=== PATIENT | male | born 1950 | race Caucasian/White ===

== ENCOUNTER 2017-05-18 22:10 | Inpatient (IN) | payer MEDICARE ==
[~2017-05-18] VITALS: Ht 170.2 cm; Wt 58.1 kg
--- NOTE | 2017-05-18 23:05 | NUR ---
MEDICALLY CLEARED BY DR EPPS
[2017-05-18] MEDS ORDERED: FAMO20TA8 PO (23:22)
[2017-05-18] MEDS ORDERED: MULT1TAB11 PO (23:22)
[2017-05-18] MEDS ORDERED: LACT1CAP61 PO (23:22)
[2017-05-18] MEDS ORDERED: RISP0.2515 PO (23:22)
[2017-05-18] MEDS ORDERED: ONDA4TAB8 PO (23:22)
[2017-05-18] MEDS ORDERED: MAG-55 PO (23:22)
[2017-05-18] MEDS ORDERED: SENN8.6T60 PO (23:22)
[2017-05-18] MEDS ORDERED: VALS160T2 PO (23:22)
[2017-05-18] MEDS ORDERED: ACET325T53 PO (23:22)
[2017-05-18] MEDS ORDERED: ENOX40DI SQ (23:22)
[2017-05-18] MEDS ORDERED: THIA100T13 PO (23:22)
[2017-05-18] MEDS ORDERED: BISA10SU8 RC (23:22)
[2017-05-18] MEDS ORDERED: LORA0.5T PO (23:22)
[2017-05-18] MEDS ORDERED: BISA5TAB10 PO (23:22)
[2017-05-18] MEDS ORDERED: DOCU100C36 PO (23:22)
[2017-05-18] MEDS ORDERED: POLY17PO3 PO (23:22)
[2017-05-18] MEDS ORDERED: MEMA10TA PO (23:22)
[2017-05-18] MEDS ORDERED: CALC-513 PO (23:22)
[2017-05-18] MEDS ORDERED: DONE5TAB34 PO (23:22)
[2017-05-18] MEDS ORDERED: DIPH25CA83 PO (23:22)
[2017-05-18] MEDS ORDERED: TEMA15CA PO (23:22)
[2017-05-18] MEDS ORDERED: OXYC-128 PO (23:22)
[2017-05-18] MEDS ORDERED: METO25TA6 PO (23:22)
[2017-05-18] MEDS ORDERED: FOLI1TAB16 PO (23:22)
--- NOTE | 2017-05-18 23:41 | NUR ---
TRANSFERED TO [facility]
[2017-05-19] MEDS ORDERED: MAGNESIUM HYDROXIDE 30 ML LIQUID UDC PO PRN (00:30)
[2017-05-19] MEDS ORDERED: MAG HYDROX/AL HYDROX/SIMETH 30 ML LIQUID UDC PO PRN (00:30)
--- NOTE | 2017-05-19 00:45 | NUR ---
Admitted 67 years old male from [facility] to [facility] on a 5150 hold for GD. Patient presented at [facility] with AMS, confused disoriented. pt was "recently kicked out of his group home facility for agitation." Pt has no support system and stated "all my family is ." Patient has no safe plan for self care at this time. Hold started on 05/18/17 at 1700 and will end on 05/21/17 at 1700. Pt was initially agitated upon arrival to the unit; however, he was cooperative with admission process. Skin assessment, a bruise was noted in right hand posterior aspect, a small scab noted in left forearm lateral aspect. a small bruise noted in upper left arm lateral aspect. Redness in groin area. He also has two small surgical incision in right hip lateral aspect. Pictures were taken. Medication were reconciled with Dr. Mcknight. He will also be under the care of Dr. Hayes (Psych MD). Patient uses a walker to assist with ambulation. PT eval was ordered. Pt requested Tylenol 650mg PO PRN for rt hip pain. will continue to monitor.
[2017-05-19] MEDS ORDERED: SENNOSIDES 1 TABLET PO PRN (01:00)
[2017-05-19] MEDS ORDERED: CALCIUM CARBONATE 500 MG TABLET PO PRN (01:00)
[2017-05-19] MEDS ORDERED: ONDANSETRON ODT 4 MG TAB.RAPDIS SL PRN (01:00)
[2017-05-19] MEDS ORDERED: ACETAMINOPHEN 325 MG TABLET PO PRN (01:00)
[2017-05-19] MEDS ORDERED: BISACODYL 5 MG TABLET.DR PO PRN (01:00)
[2017-05-19] MEDS ORDERED: BISACODYL 10 MG SUPP.RECT RC PRN (01:00)
[2017-05-19] MEDS: ACETAMINOPHEN 325 MG TABLET PO PRN ×2 (01:12→18:09)
[2017-05-19] MEDS ORDERED: ACETAMINOPHEN 325 MG TABLET ONE (01:25)
[2017-05-19 05:10] VITALS: BP 145/84
[2017-05-19 05:46] VITALS: BP 143/81
[2017-05-19 07:30] VITALS: BP 133/83
[2017-05-19] MEDS ORDERED: CALCIUM CARBONATE 500 MG TAB.CHEW PO PRN (07:30)
[2017-05-19] MEDS: DOCUSATE SODIUM 100 MG CAPSULE PO SCH (08:52)
[2017-05-19] MEDS: THIAMINE HCL 100 MG TABLET PO SCH (08:52)
[2017-05-19] MEDS: FAMOTIDINE 20 MG TABLET PO SCH ×2 (08:58→20:37)
[2017-05-19] MEDS: FOLIC ACID 1 MG TABLET PO SCH (08:58)
[2017-05-19] MEDS: METOPROLOL TARTRATE 25 MG TABLET PO SCH ×2 (08:58→20:38)
[2017-05-19] MEDS: VALSARTAN 160 MG TABLET PO SCH ×2 (08:59→20:37)
[2017-05-19] MEDS: MIRALAX 17 GM POWD.PACK PO SCH (09:00)
[2017-05-19] MEDS: ENOXAPARIN SODIUM 40 MG/0.4 ML DISP.SYRIN SQ SCH (09:00)
[2017-05-19] MEDS: Z GUARD REMEDY PASTE 57 GM TUBE TOP SCH ×2 (09:15→21:18)
[2017-05-19 15:00] VITALS: BP 142/97
[2017-05-19 20:20] VITALS: BP 145/99
[2017-05-19] MEDS: RIVASTIGMINE TARTRATE 1.5 MG CAPSULE PO SCH (20:36)
[2017-05-19] MEDS: risperiDONE 0.5 MG TABLET PO SCH (20:37)
[2017-05-20 07:30] VITALS: BP 124/88
--- NOTE | 2017-05-20 07:30 | NUR ---
pt received in bed awake.no c/o pain noted.pt is axox3,no combative behavior noted,no new needs noted
[2017-05-20] MEDS: Z GUARD REMEDY PASTE 57 GM TUBE TOP SCH ×2 (10:12→20:05)
[2017-05-20] MEDS: THIAMINE HCL 100 MG TABLET PO SCH (10:13)
[2017-05-20] MEDS: FAMOTIDINE 20 MG TABLET PO SCH ×2 (10:13→20:03)
[2017-05-20] MEDS: MIRALAX 17 GM POWD.PACK PO SCH (10:13)
[2017-05-20] MEDS: risperiDONE 0.5 MG TABLET PO SCH ×2 (10:13→20:03)
[2017-05-20] MEDS: VALSARTAN 160 MG TABLET PO SCH ×2 (10:14→20:03)
[2017-05-20] MEDS: DOCUSATE SODIUM 100 MG CAPSULE PO SCH (10:14)
[2017-05-20] MEDS: METOPROLOL TARTRATE 25 MG TABLET PO SCH ×2 (10:15→20:03)
[2017-05-20] MEDS: FOLIC ACID 1 MG TABLET PO SCH (10:15)
[2017-05-20] MEDS: RIVASTIGMINE TARTRATE 1.5 MG CAPSULE PO SCH ×2 (10:15→20:03)
[2017-05-20] MEDS: ENOXAPARIN SODIUM 40 MG/0.4 ML DISP.SYRIN SQ SCH (10:16)
--- NOTE | 2017-05-20 11:00 | NUR ---
pt is walking in the hallway with walker
[2017-05-20 15:06] VITALS: BP 124/84
--- NOTE | 2017-05-20 15:15 | NUR ---
Initial DC Plan: Per patient, he currently resides home alone [[id number] [place] [address]]. Patient stated that he would like to return there. SW will follow up with MD and patient to discuss most appropriate discharge plans. SW will form a safe and proper discharge.
[2017-05-20] MEDS: OXYCODONE/APAP 5-325 MG TABLET PO PRN ×2 (15:29→23:28)
--- NOTE | 2017-05-20 18:31 | NUR ---
PT IS WALKING IN THE HALLWAY WITH WALKER.EAT HIS DINNER COMPLYING WITH MEDICATION.
[2017-05-20 20:05] VITALS: BP 131/85
[2017-05-21 07:30] VITALS: BP 138/85
[2017-05-21] MEDS: DOCUSATE SODIUM 100 MG CAPSULE PO SCH (09:00)
[2017-05-21] MEDS: VALSARTAN 160 MG TABLET PO SCH ×2 (09:01→20:30)
[2017-05-21] MEDS: FOLIC ACID 1 MG TABLET PO SCH (09:05)
[2017-05-21] MEDS: FAMOTIDINE 20 MG TABLET PO SCH ×2 (09:07→20:29)
[2017-05-21] MEDS: MIRALAX 17 GM POWD.PACK PO SCH (09:07)
[2017-05-21] MEDS: METOPROLOL TARTRATE 25 MG TABLET PO SCH ×2 (09:07→20:30)
[2017-05-21] MEDS: THIAMINE HCL 100 MG TABLET PO SCH (09:08)
[2017-05-21] MEDS: risperiDONE 0.5 MG TABLET PO SCH ×2 (09:08→20:29)
[2017-05-21] MEDS: ENOXAPARIN SODIUM 40 MG/0.4 ML DISP.SYRIN SQ SCH (09:10)
[2017-05-21] MEDS: Z GUARD REMEDY PASTE 57 GM TUBE TOP SCH ×2 (09:11→20:31)
[2017-05-21] MEDS: RIVASTIGMINE TARTRATE 1.5 MG CAPSULE PO SCH ×2 (10:15→20:29)
[2017-05-21 15:00] VITALS: BP 114/75
[2017-05-21 20:14] VITALS: BP 123/78
[2017-05-21] MEDS: TEMAZEPAM 7.5 MG CAPSULE PO PRN (23:23)
--- NOTE | 2017-05-22 01:59 | NUR ---
Patient visible on the unit, in and out of room, restless, room mate constantly asking him for help, patient verbalized the need to be moved out of his room, patient offered a prn for sleep, administered as ordered with ineffective outcome. Physician contacted to obtain an order for patient to sleep in seclusion room if room mate continued to make it difficult for patient to obtain quality sleep. Monitor for safety.
[2017-05-22 07:30] VITALS: BP 156/87
[2017-05-22] MEDS: DOCUSATE SODIUM 100 MG CAPSULE PO SCH (09:01)
[2017-05-22] MEDS: LORAZEPAM 1 MG TABLET PO PRN (09:01)
[2017-05-22] MEDS: RIVASTIGMINE TARTRATE 1.5 MG CAPSULE PO SCH ×2 (09:01→21:01)
[2017-05-22] MEDS: risperiDONE 0.5 MG TABLET PO SCH ×2 (09:01→21:00)
[2017-05-22] MEDS: FOLIC ACID 1 MG TABLET PO SCH (09:01)
[2017-05-22] MEDS: FAMOTIDINE 20 MG TABLET PO SCH ×2 (09:01→21:01)
[2017-05-22] MEDS: METOPROLOL TARTRATE 25 MG TABLET PO SCH ×2 (09:02→21:02)
[2017-05-22] MEDS: VALSARTAN 160 MG TABLET PO SCH ×2 (09:02→21:01)
[2017-05-22] MEDS: MIRALAX 17 GM POWD.PACK PO SCH (09:03)
[2017-05-22] MEDS: ENOXAPARIN SODIUM 40 MG/0.4 ML DISP.SYRIN SQ SCH (09:04)
[2017-05-22] MEDS: Z GUARD REMEDY PASTE 57 GM TUBE TOP SCH ×2 (09:04→21:23)
[2017-05-22] MEDS: THIAMINE HCL 100 MG TABLET PO SCH (09:05)
[2017-05-22] MEDS: OXYCODONE/APAP 5-325 MG TABLET PO PRN (14:44)
[2017-05-22 16:33] VITALS: BP 99/71
[2017-05-22 20:32] VITALS: BP 123/77
[2017-05-23 07:30] VITALS: BP 103/64
[2017-05-23] MEDS: LORAZEPAM 1 MG TABLET PO PRN (08:57)
[2017-05-23] MEDS: ENOXAPARIN SODIUM 40 MG/0.4 ML DISP.SYRIN SQ SCH (09:02)
[2017-05-23] MEDS: FOLIC ACID 1 MG TABLET PO SCH (09:04)
[2017-05-23] MEDS: risperiDONE 0.5 MG TABLET PO SCH ×2 (09:04→20:39)
[2017-05-23] MEDS: OXYCODONE/APAP 5-325 MG TABLET PO PRN ×2 (09:04→16:31)
[2017-05-23] MEDS: FAMOTIDINE 20 MG TABLET PO SCH ×2 (09:04→20:39)
[2017-05-23] MEDS: THIAMINE HCL 100 MG TABLET PO SCH (09:04)
[2017-05-23] MEDS: DOCUSATE SODIUM 100 MG CAPSULE PO SCH (09:04)
[2017-05-23] MEDS: METOPROLOL TARTRATE 25 MG TABLET PO SCH ×2 (09:05→20:40)
[2017-05-23] MEDS: VALSARTAN 160 MG TABLET PO SCH ×2 (09:05→20:38)
[2017-05-23] MEDS: RIVASTIGMINE TARTRATE 1.5 MG CAPSULE PO SCH ×2 (09:05→20:39)
[2017-05-23] MEDS: MIRALAX 17 GM POWD.PACK PO SCH (09:06)
[2017-05-23] MEDS: Z GUARD REMEDY PASTE 57 GM TUBE TOP SCH ×2 (09:06→20:52)
[2017-05-23 16:25] VITALS: BP 104/69
[2017-05-23 20:48] VITALS: BP 137/90
[2017-05-23] MEDS: ACETAMINOPHEN 325 MG TABLET PO PRN (21:21)
--- NOTE | 2017-05-23 22:00 | NUR ---
received to care, lying in bed, pleasant upon approach. compliant with medications and staff direction. interacts minimally with peers and staff. as of 2200, he remains awake, and restless, coming to the nurses station, every few minutes. redirected, as needed. currently watching tv. no distress noted. will continue to monitor closely.
[2017-05-23] MEDS: TEMAZEPAM 7.5 MG CAPSULE PO PRN (22:41)
--- NOTE | 2017-05-23 22:41 | NUR ---
remains restless. PRN restoril given for insomnia. pt went to bed.
--- NOTE | 2017-05-23 23:10 | NUR ---
appears to be asleep. no distress noted.
[2017-05-24] MEDS: OXYCODONE/APAP 5-325 MG TABLET PO PRN ×3 (01:28→16:37)
--- NOTE | 2017-05-24 01:28 | NUR ---
PRN percocet given for 8/10 right shoulder pain.
--- NOTE | 2017-05-24 02:00 | NUR ---
appears to be asleep. no distress noted.
--- NOTE | 2017-05-24 06:00 | NUR ---
slept 6.0 hours, total. continues to sleep. no distress noted.
[2017-05-24 07:30] VITALS: BP 129/80
[2017-05-24] MEDS: DOCUSATE SODIUM 100 MG CAPSULE PO SCH (08:21)
[2017-05-24] MEDS: THIAMINE HCL 100 MG TABLET PO SCH (08:21)
[2017-05-24] MEDS: FAMOTIDINE 20 MG TABLET PO SCH ×2 (08:21→20:26)
[2017-05-24] MEDS: FOLIC ACID 1 MG TABLET PO SCH (08:21)
[2017-05-24] MEDS: risperiDONE 1 MG TABLET PO SCH ×2 (08:21→20:28)
[2017-05-24] MEDS: RIVASTIGMINE TARTRATE 1.5 MG CAPSULE PO SCH ×2 (08:21→20:26)
[2017-05-24] MEDS: METOPROLOL TARTRATE 25 MG TABLET PO SCH ×2 (08:22→20:28)
[2017-05-24] MEDS: VALSARTAN 160 MG TABLET PO SCH ×2 (08:22→20:27)
[2017-05-24] MEDS: MIRALAX 17 GM POWD.PACK PO SCH (08:22)
[2017-05-24] MEDS: Z GUARD REMEDY PASTE 57 GM TUBE TOP SCH ×2 (08:25→20:52)
--- NOTE | 2017-05-24 15:41 | NUR ---
Polymerization Engineer: YOLY submitted Firearms Mental Health Report to [facility] at approximately 3:35pm.
[2017-05-24 16:51] VITALS: BP 116/68
[2017-05-24 20:00] VITALS: BP 139/83
[2017-05-25] MEDS: TEMAZEPAM 7.5 MG CAPSULE PO PRN (01:46)
[2017-05-25 07:30] VITALS: BP 125/79
[2017-05-25 07:33] LABS: BASOPHILS % (AUTO) 0.6 % (0.0-2.0); EOSINOPHILS # (AUTO) 0.4 K/uL (0.0-0.7); EOSINOPHILS % (AUTO) 4.8 % (0.0-7.0); HEMATOCRIT 34.3 % (40-50); HEMOGLOBIN 11.6 G/DL (14.0-18.0); LYMPHOCYTES # (AUTO) 2.4 K/UL (0.8-4.8); LYMPHOCYTES % (AUTO) 32.3 % (20.5-51.5); MEAN CORPUSCULAR HEMOGLOBIN 31.8 UUG (27.0-31.0); MEAN CORPUSCULAR HGB CONC 34 g/dL (32.0-37.0); MEAN CORPUSCULAR VOLUME 94.3 FL (82.0-92.0); MONOCYTES % (AUTO) 13.2 % (0.0-11.0); NEUTROPHILS # (AUTO) 3.5 K/UL (1.8-8.9); NEUTROPHILS % (AUTO) 49.1 % (38.5-71.5); PLATELET COUNT (AUTO) 466 K/UL (150-450); RED BLOOD CELL COUNT(AUTO) 3.64 MIL/UL (4.7-6.1); WHITE BLOOD COUNT (AUTO) 7.4 K/UL (4.0-11.2)
[2017-05-25 07:43] LABS: BILIRUBIN,TOTAL 0.3 mg/dL (0.2-1.0); CREATININE 0.8 mg/dL (0.6-1.3); MAGNESIUM 1.6 mg/dL (1.8-2.4); PHOSPHOROUS 3.8 mg/dL (2.5-4.9); POTASSIUM 3.7 mmol/L (3.5-5.1); TOTAL PROTEIN, SERUM 7.6 g/dL (6.4-8.2)
[2017-05-25 07:49] LABS: THYROID STIMULATING HORMONE 1.962 mIU/mL (0.358-3.740)
[2017-05-25] MEDS: MIRALAX 17 GM POWD.PACK PO SCH (09:00)
[2017-05-25] MEDS: Z GUARD REMEDY PASTE 57 GM TUBE TOP SCH ×2 (09:00→21:08)
[2017-05-25] MEDS: DOCUSATE SODIUM 100 MG CAPSULE PO SCH (09:00)
[2017-05-25] MEDS: RIVASTIGMINE TARTRATE 1.5 MG CAPSULE PO SCH ×2 (09:14→20:52)
[2017-05-25] MEDS: risperiDONE 1 MG TABLET PO SCH ×2 (09:14→20:52)
[2017-05-25] MEDS: LORAZEPAM 1 MG TABLET PO PRN ×2 (09:14→09:29)
[2017-05-25] MEDS: FAMOTIDINE 20 MG TABLET PO SCH ×2 (09:14→20:51)
[2017-05-25] MEDS: THIAMINE HCL 100 MG TABLET PO SCH (09:14)
[2017-05-25] MEDS: VALSARTAN 160 MG TABLET PO SCH ×2 (09:15→20:52)
[2017-05-25] MEDS: METOPROLOL TARTRATE 25 MG TABLET PO SCH ×2 (09:17→20:57)
[2017-05-25] MEDS: FOLIC ACID 1 MG TABLET PO SCH (09:18)
[2017-05-25] MEDS ORDERED: MAGNESIUM OXIDE 400 MG TABLET PO ONE (10:30)
[2017-05-25 15:10] VITALS: BP 129/84
[2017-05-25] MEDS: OXYCODONE/APAP 5-325 MG TABLET PO PRN (16:00)
[2017-05-25 20:41] VITALS: BP 128/88
--- NOTE | 2017-05-26 06:45 | NUR ---
PATIENT SLEPT FOR APPROX 6.00 HRS. THROUGH THE NIGHT. HE WOKE UP AT APPROX 0200. HE WAS NOTED CONFUSED, PACING THE HALLWAY, HE STATED, "I NEED A BAG TO TAKE ALL MY CLOTHES, ARE YOU COMING WITH ME?" PATIENT WAS GIVEN MULTIPLE REDIRECTION. EFFECTIVE, HE WENT BACK TO HIS BED. HE HAD A SHOWER THIS MORNING. NOTED PLEASANT AND COOPERATIVE.
[2017-05-26 07:30] VITALS: BP 119/70
[2017-05-26] MEDS: Z GUARD REMEDY PASTE 57 GM TUBE TOP SCH (09:00)
[2017-05-26] MEDS: FOLIC ACID 1 MG TABLET PO SCH (09:14)
[2017-05-26] MEDS: VALSARTAN 160 MG TABLET PO SCH ×2 (09:14→21:26)
[2017-05-26] MEDS: risperiDONE 1 MG TABLET PO SCH ×2 (09:14→21:32)
[2017-05-26] MEDS: RIVASTIGMINE TARTRATE 1.5 MG CAPSULE PO SCH (09:14)
[2017-05-26] MEDS: MIRALAX 17 GM POWD.PACK PO SCH (09:14)
[2017-05-26] MEDS: THIAMINE HCL 100 MG TABLET PO SCH (09:14)
[2017-05-26] MEDS: FAMOTIDINE 20 MG TABLET PO SCH ×2 (09:14→21:25)
[2017-05-26] MEDS: DOCUSATE SODIUM 100 MG CAPSULE PO SCH (09:14)
[2017-05-26] MEDS: METOPROLOL TARTRATE 25 MG TABLET PO SCH ×2 (10:19→21:28)
[2017-05-26] MEDS: OXYCODONE/APAP 5-325 MG TABLET PO PRN (13:57)
[2017-05-26 16:16] VITALS: BP 106/72
[2017-05-26 20:38] VITALS: BP 117/83
[2017-05-27 07:30] VITALS: BP 115/78
[2017-05-27] MEDS: risperiDONE 1 MG TABLET PO SCH ×2 (09:09→21:00)
[2017-05-27] MEDS: FAMOTIDINE 20 MG TABLET PO SCH ×2 (09:09→20:43)
[2017-05-27] MEDS: THIAMINE HCL 100 MG TABLET PO SCH (09:09)
[2017-05-27] MEDS: MIRALAX 17 GM POWD.PACK PO SCH (09:10)
[2017-05-27] MEDS: RIVASTIGMINE TARTRATE 3 MG CAPSULE PO SCH ×2 (09:10→16:30)
[2017-05-27] MEDS: DOCUSATE SODIUM 100 MG CAPSULE PO SCH (09:10)
[2017-05-27] MEDS: FOLIC ACID 1 MG TABLET PO SCH (09:10)
[2017-05-27] MEDS: VALSARTAN 160 MG TABLET PO SCH ×2 (10:16→21:00)
[2017-05-27] MEDS: METOPROLOL TARTRATE 25 MG TABLET PO SCH ×2 (10:19→21:00)
[2017-05-27 15:00] VITALS: BP 100/63
[2017-05-27] MEDS: OXYCODONE/APAP 5-325 MG TABLET PO PRN (17:22)
[2017-05-27 20:28] VITALS: BP 92/66
[2017-05-27 22:00] VITALS: BP 92/65
[2017-05-28 03:35] VITALS: BP 123/79
[2017-05-28 07:30] VITALS: BP 103/69
[2017-05-28 07:46] LABS: BASOPHILS % (AUTO) 0.3 % (0.0-2.0); EOSINOPHILS # (AUTO) 0.2 K/uL (0.0-0.7); EOSINOPHILS % (AUTO) 3.4 % (0.0-7.0); HEMATOCRIT 34.4 % (36.7-47.1); LYMPHOCYTES % (AUTO) 19.6 % (20.5-51.5); MEAN CORPUSCULAR HGB CONC 35 g/dL (32.5-36.3); MEAN CORPUSCULAR VOLUME 94.2 fL (73.0-96.2); MONOCYTES # (AUTO) 1.1 K/uL (2.0-10.0); NEUTROPHILS % (AUTO) 56.7 % (38.5-71.5); PLATELET COUNT (AUTO) 378 K/uL (152-348); RED BLOOD CELL COUNT(AUTO) 3.65 MIL/uL (4.06-5.63); WHITE BLOOD COUNT (AUTO) 5.3 K/uL (3.6-10.2)
[2017-05-28 07:53] LABS: BILIRUBIN,TOTAL 0.5 mg/dL (0.2-1.0); CREATININE 0.8 mg/dL (0.6-1.3); MAGNESIUM 1.4 mg/dL (1.8-2.4); PHOSPHOROUS 4.1 mg/dL (2.5-4.9); POTASSIUM 3.7 mmol/L (3.5-5.1); TOTAL PROTEIN, SERUM 7.4 g/dL (6.4-8.2)
[2017-05-28 08:16] LABS: EOSINOPHILS % (MANUAL) 4 % (0-8); LYMPHOCYTES % (MANUAL) 24 % (20-40); MONOCYTES % (MANUAL) 9 % (2-10); NEUTROPHILS % (MANUAL) 63 % (42-75)
[2017-05-28] MEDS: LORAZEPAM 1 MG TABLET PO PRN (08:49)
[2017-05-28] MEDS: OXYCODONE/APAP 5-325 MG TABLET PO PRN ×3 (08:50→21:06)
[2017-05-28] MEDS: FOLIC ACID 1 MG TABLET PO SCH (08:50)
[2017-05-28] MEDS: THIAMINE HCL 100 MG TABLET PO SCH (08:50)
[2017-05-28] MEDS: RIVASTIGMINE TARTRATE 3 MG CAPSULE PO SCH ×2 (08:51→18:12)
[2017-05-28] MEDS: risperiDONE 1 MG TABLET PO SCH ×2 (08:51→21:06)
[2017-05-28] MEDS: DOCUSATE SODIUM 100 MG CAPSULE PO SCH (08:51)
[2017-05-28] MEDS: MIRALAX 17 GM POWD.PACK PO SCH (09:00)
[2017-05-28] MEDS: METOPROLOL TARTRATE 25 MG TABLET PO SCH ×2 (09:00→21:00)
[2017-05-28] MEDS: VALSARTAN 160 MG TABLET PO SCH ×2 (09:00→21:00)
[2017-05-28] MEDS: FAMOTIDINE 20 MG TABLET PO SCH ×2 (09:05→21:06)
[2017-05-28] MEDS ORDERED: MAGNESIUM OXIDE 400 MG TABLET PO ONE (10:30)
[2017-05-28 15:00] VITALS: BP 117/81
[2017-05-28] MEDS: MAGNESIUM OXIDE 400 MG TABLET PO SCH (21:06)
[2017-05-28 21:10] VITALS: BP 100/64
[2017-05-29 07:30] VITALS: BP 118/75
[2017-05-29] MEDS: risperiDONE 1 MG TABLET PO SCH ×2 (08:58→20:33)
[2017-05-29] MEDS: THIAMINE HCL 100 MG TABLET PO SCH (08:58)
[2017-05-29] MEDS: FOLIC ACID 1 MG TABLET PO SCH (08:58)
[2017-05-29] MEDS: RIVASTIGMINE TARTRATE 3 MG CAPSULE PO SCH ×2 (08:58→17:00)
[2017-05-29] MEDS: FAMOTIDINE 20 MG TABLET PO SCH ×2 (08:58→20:02)
[2017-05-29] MEDS: VALSARTAN 160 MG TABLET PO SCH ×2 (08:59→20:06)
[2017-05-29] MEDS: METOPROLOL TARTRATE 25 MG TABLET PO SCH ×2 (09:00→20:05)
[2017-05-29] MEDS: OXYCODONE/APAP 5-325 MG TABLET PO PRN ×2 (09:07→20:02)
[2017-05-29 15:33] VITALS: BP 90/63
[2017-05-29] MEDS: MAGNESIUM OXIDE 400 MG TABLET PO SCH (20:02)
[2017-05-29 20:10] VITALS: BP 107/77
--- NOTE | 2017-05-30 06:48 | NUR ---
GPS:Remain calm and cooperative. c/o pain x1. Percocet given @ 2002 pm and effective. slept 4 hrs through the night.continue plan of care. no distress noted.
[2017-05-30 07:30] VITALS: BP 95/70
[2017-05-30] MEDS: risperiDONE 1 MG TABLET PO SCH ×2 (08:25→21:03)
[2017-05-30] MEDS: FAMOTIDINE 20 MG TABLET PO SCH ×2 (08:25→21:02)
[2017-05-30] MEDS: THIAMINE HCL 100 MG TABLET PO SCH (08:25)
[2017-05-30] MEDS: FOLIC ACID 1 MG TABLET PO SCH (08:25)
[2017-05-30] MEDS: RIVASTIGMINE TARTRATE 3 MG CAPSULE PO SCH ×2 (08:25→17:09)
[2017-05-30] MEDS: METOPROLOL TARTRATE 25 MG TABLET PO SCH ×2 (08:26→21:03)
[2017-05-30] MEDS: VALSARTAN 160 MG TABLET PO SCH ×2 (08:26→21:03)
[2017-05-30] MEDS: OXYCODONE/APAP 5-325 MG TABLET PO PRN (10:21)
[2017-05-30 15:34] VITALS: BP 104/74
[2017-05-30 20:00] VITALS: BP 113/77
[2017-05-30] MEDS: MAGNESIUM OXIDE 400 MG TABLET PO SCH (21:02)
[2017-05-31 07:30] VITALS: BP 94/57
[2017-05-31] MEDS: THIAMINE HCL 100 MG TABLET PO SCH (08:07)
[2017-05-31] MEDS: RIVASTIGMINE TARTRATE 3 MG CAPSULE PO SCH (08:07)
[2017-05-31] MEDS: FOLIC ACID 1 MG TABLET PO SCH (08:07)
[2017-05-31 08:08] VITALS: BP 94/57
[2017-05-31] MEDS: risperiDONE 1 MG TABLET PO SCH (08:08)
[2017-05-31] MEDS: METOPROLOL TARTRATE 25 MG TABLET PO SCH (08:08)
[2017-05-31] MEDS: FAMOTIDINE 20 MG TABLET PO SCH (08:08)
[2017-05-31] MEDS ORDERED: VALSARTAN 40 MG TABLET PO SCH (09:00)
[2017-05-31] MEDS ORDERED: VALSARTAN 160 MG TABLET PO SCH (09:00)
--- NOTE | 2017-05-31 09:55 | NUR ---
DC Note: Patient will be discharged to [facility] [[address] [place] [address]; ] via ambulance at 4:30pm. YOLY spoke with Minna at [facility] who confirmed patient has been accepted at the facility. Patient is aware an agreeable to discharge plans. SW left a voicemail with discharge plans for patient's brother Venu [[phone]]. Patient will follow up with Dr. Leigh (Housekeeper Cleaning Cooking) and Dr. Vasquez (Psychiatrist).
--- NOTE | 2017-05-31 10:47 | NUR ---
GPS: Nursing Notes: Refusing for Pictures to be Taken: Patient is refusing for pictures to be taken, "No.... You are not going to take pictures of my buttock..", "I am fine...", "No more pictures please... I am leaving..", continue with his discharge process, continue with treatment plan.
[2017-05-31] MEDS: ACETAMINOPHEN 325 MG TABLET PO PRN (12:01)
--- NOTE | 2017-05-31 16:45 | NUR ---
GPS: Nursing Notes: Discharge Notes: Patient is awake and responding to his name, cooperative with nursing staff, compliant with his medications, denies any SI/HI, denies any AH/VH, denies any pain or discomfort, denies any SOB, discharge to [facility] at [address] [place] [id number] , report given to facility's nurse - Vinod RN supervisor testing, took all his belongings with him, transported to facility via ambulance, Dr. Leigh (still pump operator) and Dr. Vasquez (psychiatrist) will continue with aftercare at the facility, patient's brother Venu informed of discharge by Redd
== END 2017-05-31 16:45 | DRG 885 ==
LOC: ER 22:10 → GPS 23:33
PROVIDERS: ADMIT Psychiatry & Neurology Psychiatry; ATTEND Nurse Practitioner Acute Care
DX: F23 Brief psychotic disorder (principal); E44.0 Moderate protein-calorie malnutrition; E87.1 Hypo-osmolality and hyponatremia; F03.91 Unspecified dementia, unspecified severity, with behavioral disturbance; Z68.1 Body mass index [BMI] 19.9 or less, adult; E83.42 Hypomagnesemia; M25.551 Pain in right hip; Z91.83 Wandering in diseases classified elsewhere; Z87.81 Personal history of (healed) traumatic fracture; Z86.69 Personal history of other diseases of the nervous system and sense organs; Z87.01 Personal history of pneumonia (recurrent); Z79.899 Other long term (current) drug therapy; I10 Essential (primary) hypertension; E78.1 Pure hyperglyceridemia; D75.89 Other specified diseases of blood and blood-forming organs; D53.9 Nutritional anemia, unspecified
CPT/HCPCS: 36415; 73501; 83735; 84100; 84443; 85025; A4663; J1650; Q0162